=== PATIENT | male | born 1960 | race African-American/Black ===

== ENCOUNTER 2024-12-12 23:38 | Inpatient (IN) | payer OTHER ==
[~2024-12-12] VITALS: Ht 170.2 cm; Wt 95.3 kg
[2024-12-12 23:41] VITALS: O2SAT 99
[2024-12-13] VITALS (76 sets, daily range): BP systolic 106–198; BP diastolic 56–97; PULSE 74–91; RESP 11–24; TEMP 36.5–37.1; O2SAT 93–100
[2024-12-13 00:24] LABS: BASOPHILS % 0.3 % (0.0-2.0); EOSINOPHILS % 0.0 % (0.0-5.0); HEMATOCRIT. 46.7 % (42.0-52.0); HEMOGLOBIN. 15.4 g/dL (14.0-18.0); LYMPHOCYTES % 7.7 % (20.0-50.0); MEAN PLATELET VOLUME 7.7 fl (7.4-10.4); MONOCYTES % 2.8 % (2.0-8.0); NEUTROPHILS % 89.2 % (40.0-76.0); PLATELET 284 x1000/uL (130-400); RED BLOOD CELL COUNT 5.42 mill/uL (4.7-6.1); RED CELL DISTRIBUTION WIDTH 13.6 % (11.6-14.6)
[2024-12-13] MEDS: HYDRALAZINE 20MG/ML VIAL IV ONE (00:29)
[2024-12-13 00:35] LABS: CREATININE 1.4 mg/dL (0.6-1.3); UREA NITROGEN BLOOD 15 mg/dL (9-23)
[2024-12-13 00:36] LABS: ETHANOL BLOOD < 10 mg/dL (<10)
[2024-12-13 00:37] LABS: ASPARTATE AMINOTRANSFERASE 22 IU/L (<34)
[2024-12-13 00:38] LABS: BILIRUBIN DIRECT 0.1 mg/dL (<=3.0); BILIRUBIN TOTAL 0.6 mg/dL (0.1-1.0); PROTEIN TOTAL 9.0 g/dL (6.0-8.3)
[2024-12-13 00:42] LABS: TROPONIN I HIGH SENSITIVITY 107 ng/L (3.0-53)
[2024-12-13] MEDS: MAGNESIUM/ALUMINUM HYDROXIDE/SIMETHICONE 30ML UDC PO NR (01:23)
[2024-12-13] MEDS: LABETALOL 5MG/ML 4ML INJ IV NR (01:23)
[2024-12-13] MEDS: INSULIN REGULAR (HUMULIN R) 1000UNITS/10ML VIAL SUBCUT NR (01:25)
[2024-12-13 01:49] LABS: CLARITY URINE CLEAR (CLEAR); COLOR URINE YELLOW (YELLOW); GLUCOSE URINE 3+ (NEGATIVE); KETONES URINE 3+ (NEGATIVE); LEUKOCYTE ESTERASE URINE NEGATIVE (NEGATIVE); NITRITE URINE NEGATIVE (NEGATIVE); OCCULT BLOOD URINE 2+ (NEGATIVE); PH URINE 5.0 (4.5-8.0); PROTEIN URINE 1+ (NEGATIVE); SPECIFIC GRAVITY URINE 1.033 (1.005-1.030); UROBILINOGEN URINE 0.2 E.U./dL (0.2-1.0)
[2024-12-13 01:57] LABS: BACTERIA URINE TRACE; SQUAMOUS EPITHELIAL CELL URINE RARE /lpf (RARE/1+); WBC URINE 0-2 /hpf (0-2)
[2024-12-13] MEDS: DEXT 5%/0.9% NACL 1,000 ML IV SCH (02:00)
[2024-12-13] MEDS ORDERED: DEXTROSE 50% WATER 50ML SYRINGE IV PRN ×2 (02:00→17:45)
[2024-12-13] MEDS ORDERED: INSULIN REGULAR (DRIP) 100 UNITS in SODIUM CHLORIDE 0.9% 99 ML IV SCH (02:00)
[2024-12-13] MEDS ORDERED: BLOOD SUGAR DIAGNOSTIC STRIP TEST PRN (02:00)
[2024-12-13] MEDS ORDERED: MAGNESIUM 2 G PREMIX 50 ML IV PRN (02:00)
[2024-12-13] MEDS ORDERED: POTASSIUM CHLORIDE 40 MEQ in SODIUM CHLORIDE 0.9% 230 ML IV PRN (02:00)
[2024-12-13 02:08] LABS: *AMPHETAMINES SCREEN URINE NEGATIVE (NEGATIVE); *BARBITURATES SCREEN URINE NEGATIVE (NEGATIVE); *BENZODIAZEPINES SCREEN URINE NEGATIVE (NEGATIVE); *COCAINE SCREEN URINE NEGATIVE (NEGATIVE); CANNABINOID URINE SCREEN NEGATIVE (NEGATIVE); ECSTASY MDMA SCREEN URINE NEGATIVE (NEGATIVE); METHADONE URINE SCREEN NEGATIVE (NEGATIVE); OPIATES URINE SCREEN NEGATIVE (NEGATIVE); PHENCYCLIDINE URINE SCREEN NEGATIVE (NEGATIVE)
[2024-12-13] MEDS: BLOOD SUGAR DIAGNOSTIC STRIP TEST SCH ×2 (02:08→21:17)
[2024-12-13] MEDS: SODIUM CHLORIDE 0.9% 1,000 ML IV SCH (02:15)
[2024-12-13 02:32] LABS: CREATININE 1.3 mg/dL (0.6-1.3); UREA NITROGEN BLOOD 13 mg/dL (9-23)
[2024-12-13 02:38] LABS: TROPONIN I HIGH SENSITIVITY 99 ng/L (3.0-53)
[2024-12-13] MEDS: INSULIN REGULAR 100U/100ML PMX 100 ML IV SCH (02:45)
[2024-12-13] MEDS ORDERED: IPRATROPIUM/ALBUTEROL 0.5-3(2.5)MG/3ML NEB HHN PRN (03:15)
[2024-12-13] MEDS: KCL 20MEQ/100ML PREMIX 100 ML IV PRN (03:51)
[2024-12-13] MEDS: HYDRALAZINE 20MG/ML VIAL IV PRN (03:51)
[2024-12-13 04:34] LABS: BG BASE EXCESS -3.8 mmol/L (-2.0-3.0); BG CARBOXYHEMOGLOBIN 0.7 % (0.5-1.5); BG DEOXYHEMOGLOBIN 3.6 % (0.0-5.0); BG HCO3 ACT 18.7 mmol/L (21.0-28.0); BG METHEMOGLOBIN 0.2 % (0.5-1.5); BG OXYGEN SATURATION 96.4 % (94.0-98.0); BG OXYHEMOGLOBIN 95.5 % (94.0-98.0); BG PCO2 27.9 mmHg (35.0-48.0); BG PH 7.444 (7.350-7.450); BG PO2 81.1 mmHg (83.0-108.0); BG SAMPLE SITE RIGHT RADIAL; BG TOTAL HEMOGLOBIN 15.1 g/dL (13.5-17.5); BG VENT MODE ROOM AIR
[2024-12-13] MEDS ORDERED: IPRATROPIUM/ALBUTEROL 0.5-3(2.5)MG/3ML NEB NEB PRN (05:45)
[2024-12-13 06:11] LABS: PHOSPHORUS 3.6 mg/dL (2.5-4.9)
[2024-12-13] MEDS ORDERED: ACETAMINOPHEN 650MG/20.3ML UDC PO NR (07:00)
[2024-12-13] MEDS: ONDANSETRON HCL 4MG/2ML INJ IV PRN (08:02)
[2024-12-13 09:22] LABS: TROPONIN I HIGH SENSITIVITY 112 ng/L (3.0-53)
[2024-12-13 09:44] LABS: CREATININE 1.4 mg/dL (0.6-1.3); UREA NITROGEN BLOOD 18 mg/dL (9-23)
[2024-12-13 09:47] LABS: PHOSPHORUS 1.8 mg/dL (2.5-4.9)
[2024-12-13] MEDS: ACETAMINOPHEN 325MG TABLET PO PRN (10:01)
[2024-12-13] MEDS: SODIUM PHOSPHATE 15 MMOL in SODIUM CHLORIDE 0.9% 245 ML IV PRN (10:25)
[2024-12-13 12:37] LABS: PHOSPHORUS 1.5 mg/dL (2.5-4.9)
[2024-12-13 12:47] LABS: TROPONIN I HIGH SENSITIVITY 132 ng/L (3.0-53)
[2024-12-13 13:32] LABS: CREATININE 1.4 mg/dL (0.6-1.3)
[2024-12-13 13:33] LABS: UREA NITROGEN BLOOD 21 mg/dL (9-23)
[2024-12-13] MEDS: CLONIDINE 0.1MG TABLET PO PRN (16:38)
[2024-12-13 17:07] LABS: CREATININE 1.2 mg/dL (0.6-1.3)
[2024-12-13 17:08] LABS: UREA NITROGEN BLOOD 20 mg/dL (9-23)
[2024-12-13 17:10] LABS: PHOSPHORUS 2.0 mg/dL (2.5-4.9)
[2024-12-13] MEDS: ENOXAPARIN 30MG/0.3ML SYR SUBCUT SCH (17:10)
[2024-12-13] MEDS: INSULIN GLARGINE 100 UNITS/ML SUBCUT SCH (21:18)
[2024-12-13] MEDS: INSULIN LISPRO 100 UNITS/ML SUBCUT SCH (21:19)
[2024-12-13 22:36] LABS: CREATININE 1.2 mg/dL (0.6-1.3); UREA NITROGEN BLOOD 16 mg/dL (9-23)
[2024-12-13 22:38] LABS: PHOSPHORUS 2.8 mg/dL (2.5-4.9)
[2024-12-14] VITALS (33 sets, daily range): BP systolic 124–192; BP diastolic 57–95; PULSE 61–83; RESP 0–20; TEMP 36.4–37.1; O2SAT 94–99
[2024-12-14 05:56] LABS: CREATININE 1.1 mg/dL (0.6-1.3)
[2024-12-14 05:57] LABS: UREA NITROGEN BLOOD 15 mg/dL (9-23)
[2024-12-14 05:59] LABS: PHOSPHORUS 2.8 mg/dL (2.5-4.9)
[2024-12-14] MEDS: PANTOPRAZOLE SODIUM 40 MG/VIAL IV SCH (08:54)
[2024-12-14 09:23] LABS: BG BASE EXCESS -1.2 mmol/L (-2.0-3.0); BG CARBOXYHEMOGLOBIN 1.5 % (0.5-1.5); BG DEOXYHEMOGLOBIN 4.7 % (0.0-5.0); BG FRACTION INSPIRED OXYGEN 21; BG HCO3 ACT 22.4 mmol/L (21.0-28.0); BG METHEMOGLOBIN 0.1 % (0.5-1.5); BG OXYGEN SATURATION 95.2 % (94.0-98.0); BG OXYHEMOGLOBIN 93.7 % (94.0-98.0); BG PCO2 34.4 mmHg (35.0-48.0); BG PH 7.432 (7.350-7.450); BG PO2 72.1 mmHg (83.0-108.0); BG SAMPLE SITE LEFT BRACHIAL; BG TOTAL HEMOGLOBIN 14.2 g/dL (13.5-17.5); BG VENT MODE ROOM AIR
[2024-12-14] MEDS: HYDRALAZINE HCL 25MG TABLET PO SCH (21:03)
[2024-12-14] MEDS: INSULIN GLARGINE 100 UNITS/ML SUBCUT SCH (22:51)
[2024-12-15] VITALS (8 sets, daily range): BP systolic 153–186; BP diastolic 71–93; PULSE 64–71; RESP 16–18; TEMP 36.4–36.9; O2SAT 95–98
[2024-12-15 07:02] LABS: BASOPHILS % 0.6 % (0.0-2.0); EOSINOPHILS % 0.5 % (0.0-5.0); HEMATOCRIT. 41.9 % (42.0-52.0); HEMOGLOBIN. 14.0 g/dL (14.0-18.0); LYMPHOCYTES % 42.3 % (20.0-50.0); MEAN PLATELET VOLUME 7.7 fl (7.4-10.4); MONOCYTES % 8.7 % (2.0-8.0); NEUTROPHILS % 47.9 % (40.0-76.0); PLATELET 243 x1000/uL (130-400); RED BLOOD CELL COUNT 4.95 mill/uL (4.7-6.1); RED CELL DISTRIBUTION WIDTH 13.6 % (11.6-14.6)
[2024-12-15 07:12] LABS: CREATININE 1.0 mg/dL (0.6-1.3)
[2024-12-15 07:13] LABS: LDL CHOLESTEROL 109 mg/dL (5-100); TRIGLYCERIDE 133 mg/dL (0-150); UREA NITROGEN BLOOD 11 mg/dL (9-23)
[2024-12-15 07:15] LABS: PHOSPHORUS 2.7 mg/dL (2.5-4.9)
[2024-12-15] MEDS: LISINOPRIL 20MG TABLET PO SCH (09:57)
[2024-12-15] MEDS: LACTULOSE 20G/30ML UDC PO SCH (14:00)
[2024-12-15] MEDS: DOCUSATE SODIUM 250MG CAPSULE PO SCH (22:20)
[2024-12-16] VITALS: BP 185/87; PULSE 63; RESP 16; TEMP 37; O2SAT 96
[2024-12-16 04:00] VITALS: BP 161/84; PULSE 60; RESP 16; TEMP 36.3; O2SAT 98
[2024-12-16 08:00] VITALS: BP 132/76; PULSE 70; RESP 16; TEMP 36.3; O2SAT 99
[2024-12-16 12:00] VITALS: BP 150/67; PULSE 60; RESP 18; TEMP 36.5; O2SAT 97
[2024-12-16] MEDS: DOCUSATE SODIUM 250MG CAPSULE PO SCH (12:58)
[2024-12-16] MEDS: MECLIZINE 25MG TABLET PO PRN (12:58)
[2024-12-16 16:00] VITALS: BP 187/94; PULSE 64; RESP 20; TEMP 36.4; O2SAT 97
[2024-12-16] MEDS ORDERED: ACETAMINOPHEN 325MG TABLET PO PRN (18:45)
[2024-12-16 20:00] VITALS: BP 173/74; PULSE 65; RESP 18; TEMP 36.6; O2SAT 96
[2024-12-16 22:01] LABS: BASOPHILS % 0.5 % (0.0-2.0); EOSINOPHILS % 0.7 % (0.0-5.0); HEMATOCRIT. 40.8 % (42.0-52.0); HEMOGLOBIN. 13.9 g/dL (14.0-18.0); LYMPHOCYTES % 37.7 % (20.0-50.0); MEAN PLATELET VOLUME 7.9 fl (7.4-10.4); MONOCYTES % 8.9 % (2.0-8.0); NEUTROPHILS % 52.2 % (40.0-76.0); PLATELET 258 x1000/uL (130-400); RED BLOOD CELL COUNT 4.85 mill/uL (4.7-6.1); RED CELL DISTRIBUTION WIDTH 13.3 % (11.6-14.6)
[2024-12-16 22:21] LABS: CREATININE 1.0 mg/dL (0.6-1.3)
[2024-12-16 22:23] LABS: UREA NITROGEN BLOOD 6 mg/dL (9-23)
[2024-12-16 22:24] LABS: PHOSPHORUS 3.2 mg/dL (2.5-4.9)
[2024-12-17] VITALS: BP 175/96; PULSE 64; RESP 18; TEMP 36.1; O2SAT 95
[2024-12-17 04:00] VITALS: BP 148/84; PULSE 67; RESP 18; TEMP 36.4; O2SAT 96
[2024-12-17 08:00] VITALS: BP 172/71; PULSE 64; RESP 18; TEMP 36.4; O2SAT 98
[2024-12-17] MEDS ORDERED: METF-1150 MT (09:00)
[2024-12-17] MEDS ORDERED: LIP40 MT (09:00)
[2024-12-17] MEDS ORDERED: HYDR50TA40 PO (09:00)
[2024-12-17] MEDS ORDERED: LISI20TA31 MT (09:00)
[2024-12-17] MEDS ORDERED: LANTUSUD SUBCUT (09:00)
[2024-12-17] MEDS ORDERED: [UNRECOGNIZED DRUG - CODE] MC (09:00)
[2024-12-17] MEDS ORDERED: LANC-867 TP (09:00)
[2024-12-17] MEDS ORDERED: MECL-299 MT (09:07)
[2024-12-17] MEDS ORDERED: ASPI-1497 MT (09:50)
[2024-12-17 12:00] VITALS: BP_SYST 159; BP_DIAS 90; BP_DIAS 98; PULSE 66; PULSE 75; RESP 16; RESP 18; TEMP 36.6; O2SAT 98
[2024-12-17] MEDS ORDERED: AMLO5TAB88 MT (15:30)
[2024-12-17] MEDS: HYDRALAZINE HCL 50MG TABLET PO SCH (15:30)
[2024-12-17 16:00] VITALS: BP 175/88; PULSE 74; RESP 18; TEMP 36.7; O2SAT 97
[2024-12-17] MEDS: AMLODIPINE 5MG TABLET PO SCH (17:19)
[2024-12-17 20:00] VITALS: BP 153/79; PULSE 80; RESP 18; TEMP 37; O2SAT 98
[2024-12-18] VITALS: BP 150/80; PULSE 75; RESP 16; TEMP 36.1; O2SAT 99
[2024-12-18 04:00] VITALS: BP 143/74; PULSE 80; RESP 18; TEMP 37.1; O2SAT 98
[2024-12-18 08:00] VITALS: BP 147/87; PULSE 89; RESP 18; TEMP 37.2; O2SAT 96
[2024-12-18 12:00] VITALS: BP 142/82; PULSE 69; RESP 16; TEMP 36.7; O2SAT 96
[2024-12-18 16:00] VITALS: BP 157/90; PULSE 72; RESP 16; TEMP 36.5; O2SAT 99
[2024-12-18] MEDS: LORAZEPAM 2MG/ML UD SYRINGE IV SCH (17:32)
[2024-12-18 20:00] VITALS: BP 148/72; PULSE 69; RESP 16; TEMP 36.1; O2SAT 98
[2024-12-19] VITALS: BP 170/98; PULSE 80; RESP 17; TEMP 37; O2SAT 97
[2024-12-19 04:44] VITALS: BP 164/91; PULSE 75; RESP 16; TEMP 36.2; O2SAT 97
[2024-12-19 07:24] LABS: BASOPHILS % 0.6 % (0.0-2.0); EOSINOPHILS % 1.7 % (0.0-5.0); HEMATOCRIT. 38.2 % (42.0-52.0); HEMOGLOBIN. 13.1 g/dL (14.0-18.0); LYMPHOCYTES % 39.6 % (20.0-50.0); MEAN PLATELET VOLUME 7.4 fl (7.4-10.4); MONOCYTES % 8.7 % (2.0-8.0); NEUTROPHILS % 49.4 % (40.0-76.0); PLATELET 273 x1000/uL (130-400); RED BLOOD CELL COUNT 4.54 mill/uL (4.7-6.1); RED CELL DISTRIBUTION WIDTH 13.2 % (11.6-14.6)
[2024-12-19 07:39] LABS: CREATININE 1.0 mg/dL (0.6-1.3); TROPONIN I HIGH SENSITIVITY 52 ng/L (3.0-53)
[2024-12-19 07:40] LABS: UREA NITROGEN BLOOD 10 mg/dL (9-23)
[2024-12-19 07:42] LABS: PHOSPHORUS 3.3 mg/dL (2.5-4.9)
[2024-12-19 08:00] VITALS: BP 159/85; PULSE 96; RESP 18; TEMP 36.5; O2SAT 99
[2024-12-19 12:00] VITALS: BP 172/86; PULSE 78; RESP 18; TEMP 36.7; O2SAT 99
[2024-12-19] MEDS: CLOPIDOGREL 75MG TABLET PO SCH (12:34)
[2024-12-19 14:37] LABS: TROPONIN I HIGH SENSITIVITY 51 ng/L (3.0-53)
[2024-12-19 16:00] VITALS: BP 160/85; PULSE 69; RESP 18; O2SAT 97
[2024-12-19 20:00] VITALS: BP 164/89; PULSE 85; RESP 18; TEMP 37; O2SAT 98
[2024-12-19] MEDS: LISINOPRIL 20MG TABLET PO SCH (21:00)
[2024-12-19] MEDS: ATORVASTATIN CALCIUM 40MG TABLET PO SCH (22:25)
[2024-12-19] MEDS: AMLODIPINE 5MG TABLET PO SCH (22:27)
[2024-12-20] VITALS: BP 164/98; PULSE 84; RESP 17; TEMP 36.5; O2SAT 99
[2024-12-20 04:00] VITALS: BP 163/87; PULSE 75; RESP 16; TEMP 36.7; O2SAT 100
[2024-12-20 08:00] VITALS: BP 136/88; PULSE 72; RESP 18; TEMP 36.7; O2SAT 98
[2024-12-20 12:00] VITALS: BP 154/92; PULSE 70; RESP 18; TEMP 36.7; O2SAT 98
[2024-12-20 16:00] VITALS: BP 157/86; PULSE 72; RESP 16; TEMP 36.7; O2SAT 95
[2024-12-20 20:00] VITALS: BP 162/83; PULSE 75; RESP 17; TEMP 36.2; O2SAT 97
[2024-12-21] VITALS: BP 158/76; PULSE 50; RESP 17; TEMP 36.7; O2SAT 98
[2024-12-21 04:00] VITALS: BP 160/73; PULSE 55; RESP 16; TEMP 36.4; O2SAT 97
[2024-12-21 08:00] VITALS: BP 159/87; PULSE 76; RESP 19; TEMP 36.4; O2SAT 97
[2024-12-21 12:00] VITALS: BP 156/81; PULSE 63; RESP 16; TEMP 36.5; O2SAT 98
[2024-12-21] MEDS: HYDRALAZINE HCL 25MG TABLET PO SCH (14:40)
[2024-12-21 16:00] VITALS: BP 171/83; PULSE 63; RESP 16; TEMP 36.2; O2SAT 99
[2024-12-21] MEDS ORDERED: HYDRALAZINE 10 MG in SODIUM CHLORIDE 0.9% 49.5 ML IV PRN (16:00)
[2024-12-21 20:00] VITALS: BP 151/68; PULSE 18; RESP 18; TEMP 36.7; O2SAT 94
[2024-12-21] MEDS: HYDRALAZINE HCL 50MG TABLET PO SCH (22:48)
[2024-12-22] VITALS (7 sets, daily range): BP systolic 135–180; BP diastolic 78–108; PULSE 72–95; RESP 18–20; TEMP 36.4–36.9; O2SAT 97–98
[2024-12-22] MEDS: CLONIDINE 0.2MG TABLET PO SCH (21:20)
[2024-12-22] MEDS: INSULIN LISPRO 100 UNITS/ML SUBCUT SCH (21:47)
[2024-12-22] MEDS: INSULIN GLARGINE 100 UNITS/ML SUBCUT SCH (22:44)
[2024-12-23] VITALS: BP 102/69; PULSE 69; RESP 18; TEMP 36.4; O2SAT 100
[2024-12-23 04:00] VITALS: BP 123/54; PULSE 61; RESP 18; TEMP 36.4; O2SAT 100
[2024-12-23] MEDS: INSULIN LISPRO 100 UNITS/ML SUBCUT SCH (06:33)
[2024-12-23 08:00] VITALS: BP 131/70; PULSE 64; RESP 18; TEMP 36.4; O2SAT 98
[2024-12-23] MEDS: PANTOPRAZOLE 40MG DR TABLET PO SCH (08:22)
[2024-12-23 12:00] VITALS: BP 124/89; PULSE 69; RESP 16; TEMP 36.8; O2SAT 97
[2024-12-23 16:00] VITALS: BP 138/91; PULSE 78; RESP 19; TEMP 37; O2SAT 99
[2024-12-23] MEDS ORDERED: HYDR50TA40 PO (19:21)
[2024-12-23] MEDS ORDERED: PANT40TA51 PO (19:21)
[2024-12-23] MEDS ORDERED: INSLIS SUBCUT (19:21)
[2024-12-23] MEDS ORDERED: LISI40TA21 MT (19:21)
[2024-12-23] MEDS ORDERED: CLON0.2T PO (19:21)
[2024-12-23] MEDS ORDERED: TOPUD PO (19:21)
[2024-12-23] MEDS ORDERED: CLOP-31 PO (19:21)
[2024-12-23] MEDS ORDERED: LANTUSUD SUBCUT (19:21)
[2024-12-23 20:00] VITALS: BP 149/82; PULSE 63; RESP 15; TEMP 36.5; O2SAT 100
[2024-12-23] MEDS: INSULIN GLARGINE 100 UNITS/ML SUBCUT SCH (21:49)
[2024-12-24] VITALS: BP 123/78; PULSE 57; RESP 16; TEMP 36.4; O2SAT 97
[2024-12-24 04:00] VITALS: BP 141/89; PULSE 58; RESP 15; TEMP 36.5; O2SAT 98
[2024-12-24 08:00] VITALS: BP 131/80; PULSE 72; RESP 16; TEMP 36.7; O2SAT 96
[2024-12-24] MEDS: ASPIRIN 81MG TABLET PO SCH (08:53)
[2024-12-24 12:00] VITALS: BP 123/67; PULSE 60; RESP 16; TEMP 36.6; O2SAT 97
[2024-12-24 16:00] VITALS: BP 128/67; PULSE 68; RESP 16; TEMP 36.5; O2SAT 95
[2024-12-24 20:00] VITALS: BP 125/77; PULSE 60; RESP 18; TEMP 36.6; O2SAT 96
[2024-12-25] VITALS: BP 136/82; PULSE 61; RESP 18; TEMP 36.5; O2SAT 96
[2024-12-25 04:00] VITALS: BP 152/83; PULSE 59; RESP 18; TEMP 36.4; O2SAT 96
[2024-12-25 08:00] VITALS: BP 139/74; PULSE 63; RESP 19; TEMP 36.6; O2SAT 95
[2024-12-25 12:00] VITALS: BP 139/67; PULSE 62; RESP 20; TEMP 36.2; O2SAT 99
[2024-12-25 13:55] VITALS: BP 139/74; PULSE 63; RESP 19; TEMP 97.8
[2024-12-25 16:00] VITALS: BP 143/76; PULSE 76; RESP 20; TEMP 36.2; O2SAT 99
[2024-12-25] MEDS ORDERED: INSU100I28 SQ (17:11)
[2024-12-25] MEDS ORDERED: INSLIS SUBCUT (17:11)
[2024-12-25] MEDS ORDERED: PANT40TA51 MT (17:11)
[2024-12-25] MEDS ORDERED: INSHUMSS SUBCUT (17:50)
[2024-12-25] MEDS ORDERED: LISI40TA21 MT (18:53)
[2024-12-25] MEDS ORDERED: CLON0.2T MT (18:53)
[2024-12-25] MEDS ORDERED: HYDR50TA40 PO (18:53)
[2024-12-25] MEDS ORDERED: LIP40 MT (18:53)
[2024-12-25] MEDS ORDERED: CLOP75TA33 MT (18:53)
[2024-12-25] MEDS ORDERED: BLOO-1465 MT (18:53)
== END 2024-12-25 18:15 | disposition home health service (06) | DRG 280 ==
LOC: ER 23:52 → EDBEDREQ 12-13 01:16 → EDBEDREQTM 12-13 01:16 → EDBEDREQSVC 12-13 01:16 → ENRESERV 12-13 02:46 → MICUNO 12-13 03:21 → 5WST 12-14 21:50 → 7EST 12-21 15:34 → 8EST 12-23 09:57
PROVIDERS: ADMIT Student in an Organized Health Care Education/Training Program; ATTEND Student in an Organized Health Care Education/Training Program
PROC: 4A00X4Z Measurement of Central Nervous Electrical Activity, External Approach (ICD-10-PCS; principal; 2024-12-19)
DX: I16.1 Hypertensive emergency (principal); E11.10 Type 2 diabetes mellitus with ketoacidosis without coma; I21.A1 Myocardial infarction type 2; I63.81 Other cerebral infarction due to occlusion or stenosis of small artery; N17.0 Acute kidney failure with tubular necrosis; I12.9 Hypertensive chronic kidney disease with stage 1 through stage 4 chronic kidney disease, or unspecified chronic kidney disease; N18.9 Chronic kidney disease, unspecified; E86.0 Dehydration; I10 Essential (primary) hypertension; R80.9 Proteinuria, unspecified; E83.42 Hypomagnesemia; E83.51 Hypocalcemia; D72.829 Elevated white blood cell count, unspecified; E11.29 Type 2 diabetes mellitus with other diabetic kidney complication; E78.5 Hyperlipidemia, unspecified; Z79.899 Other long term (current) drug therapy; Z91.148 Patient's other noncompliance with medication regimen for other reason
CPT/HCPCS: 36415; 36600; 70551; 71045; 80048; 80061; 80076; 80305; 80320; 81003; 82010; 82375; 82805; 82962; 83036; 83735; 83930; 84100; 84484; 85025; 93005; 93306; 93970; 95816; 96372; 96374; 96375; 97110; 97116; 97162; 97165; 97530; 97535; 99291; J0360; J1650; J1815; J2060; J2405; J2470; J3480; J3490; J7050; J8597; G0480